=== PATIENT | male | born 1980 | race Caucasian/White ===

== ENCOUNTER 2016-09-02 07:34 | Outpatient (CLI) | payer OTHER ==
[2016-09-02 07:48] LABS: BASOPHILS % 1.2 (0.0-1.5); EOSINOPHILS % 2.3 % (0.0-6.8); MEAN CORPUSCULAR HEMOGLOBIN 30.6 pg (28.0-34.0); MEAN CORPUSCULAR VOLUME 88.1 fl (80.0-100.0); MONOCYTES % 6.4 % (0.0-11.0); NEUTROPHILS # 1.6 # k/uL (1.4-7.7)
[2016-09-02 08:12] LABS: eGFR (African) > 60; eGFR (Non-African) > 60
== END 2016-09-02 07:35 ==
LOC: LAB 07:34
PROVIDERS: ATTEND Psychiatry & Neurology Psychiatry
DX: F84.0 Autistic disorder (principal)
CPT/HCPCS: 36415; 80053; 80061; 83036; 84443; 85025

== ENCOUNTER 2017-07-20 16:37 | Outpatient (CLI) | payer OTHER | END 2017-07-20 16:40 | LOC: LABRHC 16:37 | PROVIDERS: ATTEND Physician Assistant | DX: K12.0 Recurrent oral aphthae (principal); K13.0 Diseases of lips | CPT/HCPCS: 87070 ==

== ENCOUNTER 2017-08-02 13:59 | Outpatient (CLI) | payer OTHER ==
--- NOTE | 2017-08-05 06:59 | OP Clinic Progress Note ---
REASON FOR VISIT: [place] is seen accompanied by his mother. He has had a mass growing on his lower lip on the left side. He has a habit of rubbing his T-shirt against his lower lip or lower teeth. A portion of this was partially excised with a significant amount of liquid being alleviated. Nevertheless, it tends to reoccur. Clinically, he has about a 1 cm moderately large mass. It is somewhat firm and rubbery. I cannot see the rest of his mouth. 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 PLAN: I described options and choices and mostly is excision. Generally, the individual would do best with a short, but nevertheless, general anesthetic. Again, the possibility of recurrence, scar, a small lip deformity depending upon how large it is at the time of surgery, and that the patient might chew the wound open and leave some, I would think not large, but potential deformity is a possibility. Again, there is always a possibility of recurrence. I reviewed these issues with the mother several times. She is welcome to additional opinions. The mother has elected to go ahead with that and the arrangements will be made in that regard. cc: Dr. Alexis BRYANT
== END 2017-08-02 14:00 ==
LOC: ENT 13:59
PROVIDERS: ATTEND Otolaryngology
DX: K09.9 Cyst of oral region, unspecified (principal)
CPT/HCPCS: 99213

== ENCOUNTER 2017-09-06 07:28 | Outpatient (CLI) | payer OTHER ==
[2017-09-06 07:53] LABS: BASOPHILS % 0.4 (0.0-1.5); EOSINOPHILS % 3.3 % (0.0-6.8); MEAN CORPUSCULAR HEMOGLOBIN 31.4 pg (28.0-34.0); MEAN CORPUSCULAR VOLUME 89.6 fl (80.0-100.0); MONOCYTES % 7.2 % (0.0-11.0); NEUTROPHILS # 1.4 # k/uL (1.4-7.7)
[2017-09-06 08:20] LABS: eGFR (African) > 60; eGFR (Non-African) > 60
== END 2017-09-06 07:30 ==
LOC: LAB 07:28
PROVIDERS: ATTEND Family Medicine
DX: F84.0 Autistic disorder (principal); R63.4 Abnormal weight loss
CPT/HCPCS: 36415; 80053; 85025

== ENCOUNTER 2018-10-03 07:45 | Outpatient (CLI) | payer OTHER ==
[2018-10-03 09:07] LABS: HDL 55 mg/dL (>40); eGFR (Non-African) > 60
== END 2018-10-03 07:47 ==
LOC: LAB 07:45
PROVIDERS: ATTEND Psychiatry & Neurology Psychiatry
DX: Z51.81 Encounter for therapeutic drug level monitoring (principal); Z79.899 Other long term (current) drug therapy
CPT/HCPCS: 36415; 80053; 80061; 83036